=== PATIENT | female | born 1985 | race African-American/Black ===

== ENCOUNTER → 2016-08-29 | Outpatient (CLI) | payer BC ==
--- NOTE | 2016-08-30 08:54 | KCIC ---
PROCEDURE MRI study of the left knee without contrast HISTORY Left knee pain. Sharp generalized pain in the knee joint. Left knee injury over 4 months ago. Pain with activity in the last 2 months. TECHNIQUE Noncontrast MRI sequences of the left knee were performed in all 3 planes. COMPARISON None available. FINDINGS The anterior and posterior cruciate ligaments are intact. The quadriceps and patellar tendons are intact. There is an inferior articular surface tear of the posterior horn and posterior body of the medial meniscus. No articular surface tear of the lateral meniscus is seen. The medial collateral ligament is intact and no meniscal capsular separation is seen. The lateral collateral ligament complex and iliotibial band and popliteus tendon are intact. No posterior lateral corner injury is seen. No bone contusion or fracture or marrow infiltrative process is seen. No focal osteochondral abnormality of the medial or lateral tibiofemoral joint compartments is seen. The patella is normally aligned. Small focus of mild chondromalacia is seen involving the medial patellar facet. The trochlear articular cartilage is unremarkable. The medial and lateral retinacular ligaments are intact. No muscle edema is seen. No knee joint effusion is seen. No loose osteochondral body is evident. No Richmond's cyst is seen. IMPRESSION Tear of the medial meniscus. Mild chondromalacia patellae. Electronically signed by: Raf Asher MD (Aug 30, 2016 08:52:37)
== END | disposition home or self-care (01) ==
LOC: KCIC MRI 16:28
PROVIDERS: ATTEND Orthopaedic Surgery
DX: S83.242A Other tear of medial meniscus, current injury, left knee, initial encounter (principal); M22.42 Chondromalacia patellae, left knee
CPT/HCPCS: 73721